=== PATIENT | female | born 1990 | race Caucasian/White ===

== ENCOUNTER 2018-08-04 15:54 | Emergency (ER) | payer BC ==
[~2018-08-04] VITALS: Ht 162.6 cm; Wt 86.6 kg
[2018-08-04] MEDS ORDERED: SYNTHROID25 MCG PO (16:23)
[2018-08-04] MEDS ORDERED: MULTI VITAMIN1 EACH PO (16:24)
== END 2018-08-04 18:30 | disposition home or self-care (01) ==
LOC: ED 15:54
DX: O20.0 Threatened abortion (principal); Z88.0 Allergy status to penicillin; Z88.2 Allergy status to sulfonamides; Z79.899 Other long term (current) drug therapy; Z3A.01 Less than 8 weeks gestation of pregnancy
CPT/HCPCS: 76801; 76817; 84702; 85025; 99284

== ENCOUNTER 2018-12-01 03:45 | Emergency (ER) | payer BC ==
[~2018-12-01] VITALS: Ht 162.6 cm; Wt 86.2 kg
[~2018-12-01 03:45] MED LIST: MOTRIN IB200 MG PO; MULTI VITAMIN1 EACH PO; NORCO 5-325 TA1 EACH PO; ONDANSETRON ODT8 MG PO; SYNTHROID25 MCG PO; SYNTHROID50 MCG PO; UNISOM25 MG PO; ZOFRAN ODT4 MG PO
[2018-12-01] MEDS ORDERED: CYCLOBENZAPRINE10 MG PO (03:59)
[2018-12-01] MEDS ORDERED: ULTRAM50 MG PO (08:43)
== END 2018-12-01 09:00 | disposition home or self-care (01) ==
LOC: ED 03:45
PROC: 0T9B70Z Drainage of Bladder with Drainage Device, Via Natural or Artificial Opening (ICD-10-PCS; principal; 2018-12-01)
DX: R10.2 Pelvic and perineal pain (principal); E03.9 Hypothyroidism, unspecified; Z88.5 Allergy status to narcotic agent; Z88.0 Allergy status to penicillin; Z88.2 Allergy status to sulfonamides; Z79.899 Other long term (current) drug therapy
CPT/HCPCS: 51701; 76830; 76856; 80053; 81001; 84702; 84703; 85025; 96374; 96375; 96376; 99284-25; J1885; J2405; J3010

== ENCOUNTER 2019-01-14 08:29 | Day surgery (SDC) | payer BC ==
[~2019-01-14] VITALS: Ht 162.6 cm; Wt 85.7 kg
--- NOTE | ~2019-01-14 | OR ---
[facility] [address] [place], [place] [address] Draft DATE OF OPERATION: 01/14/2019 SURGEON: Walter Spaulding DO PREOPERATIVE DIAGNOSES: 1. Uterine mass. 2. Abnormal uterine bleeding. 3. Possible retained products of conception. POSTOPERATIVE DIAGNOSES: 1. Uterine mass. 2. Abnormal uterine bleeding. PROCEDURES PERFORMED: 1. Hysteroscopy. 2. Dilation and curettage. 3. Excision of uterine mass. ANESTHESIA: MAC. ESTIMATED BLOOD LOSS: 10 mL. SPECIMENS: 1. Intrauterine mass. 2. Endometrial curettings. FINDINGS: Normal external genitalia, vagina, and cervix. Endocervical os/canal is normal. Normal tubal ostia bilaterally and a large posterior intrauterine cavitary mass extending on the patient's right side near the cornua. Some scant thready adhesions to this mass. Mass was avascular and rubbery in texture. This was excised completely with MyoSure REACH with scant bleeding. There were scant endometrial curettings returned with sharp curettage. The patient was hemostatic at the end of procedure. COMPLICATIONS: None. INDICATIONS: PATIENT NAME: TRELL GARG OPERATIVE REPORT DATE OF : 86 REPORT #: [id number] PHYSICIAN: WALTER SPAULDING DO PCP: ERON CAPPS PAC REPORT IS CONFIDENTIAL AND NOT TO BE RELEASED WITHOUT AUTHORIZATION [facility] [address] [place] [id number] Draft Ms. Garg is a pleasant 28-year-old white female who had miscarriage last fall. Suction D and C were performed and pathology was benign. She continued to bleed after her suction D and C and test continued to be positive. Ultrasound showed vascular posterior uterine mass concerning for possible AV malformation or retained products of conception. She was sent to [facility] for consult with [employer]/Onc who recommended watchful waiting. The patient had a second opinion with Сергей Graves MD at [facility] in [place], who is also HORSE EXERCISER oncologist. He recommended following levels closely and if plateau was reached to proceed with hysteroscopy D and C. Her levels did indeed plateau and decision was made to proceed with hysteroscopy D and C. Risks, benefits, and alternatives were discussed in detail with the patient and she wishes to proceed with the procedure. TECHNIQUE: The patient was taken to the operating room where a time-out was performed to confirm correct patient, correct procedure. MAC anesthesia was adequately established. She was prepped and draped in dorsal lithotomy position with feet in Yellofin stirrups. ICPs were on and running. She received doxycycline 200 mg p.o. 1 hour preoperatively per ACOG guidelines. Heparin was not indicated. She also received tranexamic acid 1 g IV preoperatively. Once the patient was prepped and draped, a weighted speculum was placed in vagina and the anterior lip of the cervix was grasped with a single-tooth tenaculum. The cervix was already widely dilated and an operative hysteroscope was placed in the cervical os and advanced under direct visualization through the cervical canal into the intrauterine cavity. Normal bilateral tubal ostia confirmed intrauterine position. There was a large mass on the posterior right wall of the uterine cavity. MyoSure REACH device was selected and the mass was excised without difficulty. It was rubbery in texture and no bleeding was noted with the excision of this. It was shaved, flushed to the wall of the uterine cavity and does not appear to extend into the wall. The operative hysteroscope was withdrawn and gentle circumferential curettage was performed with a sharp curette and curettings were collected on Telfa and sent to pathology. No additional bleeding was noted. Allis clamp was removed and the patient was taken to PACU in good and stable condition. Sponge and instrument count were correct x2 at the end of the procedure. Fluid deficit was 520 mL. Walter Spaulding DO JDW/MODL PATIENT NAME: TRELL GARG OPERATIVE REPORT DATE OF : 86 REPORT #: [id number] PHYSICIAN: WALTER SPAULDING DO PCP: ERON CAPPS PAC REPORT IS CONFIDENTIAL AND NOT TO BE RELEASED WITHOUT AUTHORIZATION [address] [place], [place] [address] Draft /[id number] Copies: ~ PATIENT NAME: TRELL GARG OPERATIVE REPORT DATE OF : 86 REPORT #: [id number] PHYSICIAN: WALTER SPAULDING DO PCP: ERON CAPPS PAC REPORT IS CONFIDENTIAL AND NOT TO BE RELEASED WITHOUT AUTHORIZATION
[~2019-01-14 08:29] MED LIST changes: +CYCLOBENZAPRINE10 MG PO; +ULTRAM50 MG PO
--- NOTE | 2019-01-14 13:01 | NUR ---
01/14/19 1301 Kimmie Chaparro 1242- PT ARRIVES TO PACU AWAKE AND MOANING IN PAIN. PT RATES HER PAIN AN 8/10 IN HER ABD. STATES SHE IS CRAMPING. KENIA ROMAN, CUSTOM STUDIO COORDINATOR AT THE BEDSIDE AND GIVES FENTANYL IV. SEE BLUE SHEET. RESP EVEN. OXYGEN SAT HIGH 90'S ON RA. 1250- PT REPORTS HER PAIN IS IMPROVING. RATES IT A 5/10, DENIES WANTING PAIN MEDICATION AT THIS TIME. 1252- PT STATES SHE FEELS LIKE SOMETHING IS "COMING OUT OF ME". PT CHECKED, NO BLOOD OR OBJECTS NOTED. EDUCATED PT THAT EVERYTHING LOOKS OKAY AT THIS TIME AND TO NOTIFY THIS RN IF ANYTHING FEELS DIFFERENT. 1257- PT IS REQUESTING MORE PAIN MEDICATION. SEE BLUE SHEET.
--- NOTE | 2019-01-14 13:02 | NUR ---
PT ALERT, ORIENTED AND SUPPORTED BY [facility]. PT KNOWS SHE IS AN ADD ON TO SURGERY SCHEDULE, AND IS VERY PT. 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 EXTENDED A BLESSING, WILL CONTINUE TO FOLLOW NEEDED
[2019-01-14] MEDS ORDERED: MOTRIN IB200 MG PO (13:31)
[2019-01-14] MEDS ORDERED: ULTRAM50 MG PO (13:31)
== END 2019-01-14 14:15 | disposition home or self-care (01) ==
LOC: OPS 08:29 → DS 08:29 → OPS 12:00 → DS 12:00 → OPS 14:15
PROVIDERS: Obstetrics & Gynecology
PROC: 0UDB8ZZ Extraction of Endometrium, Via Natural or Artificial Opening Endoscopic (ICD-10-PCS; principal; 2019-01-14 12:00)
DX: N85.8 Other specified noninflammatory disorders of uterus (principal); Z98.890 Other specified postprocedural states; Z88.0 Allergy status to penicillin; Z88.2 Allergy status to sulfonamides; Z79.899 Other long term (current) drug therapy
CPT/HCPCS: 00952; 85027; 86850; 86900; 86901; J0131; J1100; J1885; J2250; J2405; J2704; J3010; J7120

== ENCOUNTER 2020-01-06 00:03 | Inpatient (IN) | payer BC ==
[~2020-01-06] VITALS: Ht 162.6 cm; Wt 105.0 kg
[2020-01-06] MEDS ORDERED: VITAFOL-OB+DHA1 EACH PO (00:50)
[2020-01-06] MEDS ORDERED: PEPCID20 MG PO (00:50)
[2020-01-06] MEDS ORDERED: MAGNESIUM500 MG PO (00:51)
[2020-01-06] MEDS ORDERED: OMEGA 3 1,0001 EACH PO (00:51)
[2020-01-06] MEDS ORDERED: SYNTHROID50 MCG PO (00:52)
--- NOTE | 2020-01-06 08:05 | PR ---
[facility] [address] [place] [place] [address] Signed Progress Notes IP Datetime Report Generated by CPN: 01/06/2020 08:05 PROGRESS NOTES: [id number] Impression: Normal progression of labor; Reassuring heart rate Procedures: Sterile Vag Exam Plan: Continue present management; Anticipate Vaginal Delivery VITAL SIGNS: [id number] Vital Signs: Reviewed VS Notable Details: Elevated BPs prior to epidural, now normal EXAM: [id number] Dilatation: 5.0 Effacement: 95 Station: -2 Uterine Contractions: Irregular MEMBRANES: [id number] Comments: Pt seen and examined. Doing well. Comfortable w/ epidural. FHT reassuring. Slightly elevated BPs secondary to pain prior to epidural now normal. No MORRISON, RUQ pain, or visual changes. Anticipate . Fetus A: [id number] FHR Baseline: 120 Variability: Moderate 6-25bpm Accelerations: 15X15 Decelerations: None FHR Category: Category I Presentation: Vertex Comments on Fetus A: No evidence of metabolic acidosis Fetus B: [id number] Signing Physician: Walter Spaulding DO Copies: ~ *Electronically Signed* 01/06/20 0805 WALTER SPAULDING DO PATIENT NAME: TRELL CAMERON PROGRESS NOTE DATE OF : 86 PHYSICIAN: WALTER SPAULDING DO RPT #: [id number] REPORT IS CONFIDENTIAL AND NOT TO BE RELEASED WITHOUT AUTHORIZATION
--- NOTE | 2020-01-06 09:54 | PR ---
[facility] [address] [facility] [place], [place] [address] Signed Progress Notes IP Datetime Report Generated by CPAnu: 01/06/2020 09:54 PROGRESS NOTES: [id number] Impression: Normal progression of labor Procedures: Sterile Vag Exam Plan: Continue present management; Anticipate Vaginal Delivery Informed Consent Obtain: Vaginal Delivery VITAL SIGNS: [id number] Vital Signs: Reviewed; Within Normal Limits VS Notable Details: Elevated BPs prior to epidural, now normal EXAM: [id number] Dilatation: 9.0 Effacement: 100 Station: -1 Uterine Contractions: Irregular MEMBRANES: [id number] Comments: Pt seen and examined. Doing well. Comfortable w/ contractions. Feeling some increased pressure. Will labor down. Anticipate soon. Fetus A: [id number] FHR Baseline: 125 Variability: Moderate 6-25bpm Accelerations: 15X15 Decelerations: Late FHR Category: Category II Presentation: Vertex Comments on Fetus A: No evidence of metabolic acidosis Fetus B: [id number] Signing Physician: Walter Spaulding DO Copies: ~ *Electronically Signed* 01/06/20 0954 WALTER SPAULDING DO PATIENT NAME: TRELL CAMERON PROGRESS NOTE DATE OF : 86 PHYSICIAN: WALTER SPAULDING DO RPT #: [id number] REPORT IS CONFIDENTIAL AND NOT TO BE RELEASED WITHOUT AUTHORIZATION
--- NOTE | 2020-01-06 11:10 | PR ---
[facility] [address] [facility] [place], [place] [address] Signed Progress Notes IP Datetime Report Generated by CPN: 01/06/2020 11:10 PROGRESS NOTES: [id number] Impression: Normal progression of labor; Reassuring heart rate Procedures: Sterile Vag Exam Plan: Anticipate Vaginal Delivery Informed Consent Obtain: Vaginal Delivery VITAL SIGNS: [id number] Vital Signs: Reviewed VS Notable Details: Elevated BPs prior to epidural, now normal EXAM: [id number] Dilatation: 10.0 Effacement: 100 Station: 0 Uterine Contractions: Irregular MEMBRANES: [id number] Comments: Pt complete and RN pushing w/ pt at perineum. Reviewed FHT. Discussed anticipated course of delivery w/ pt . All questions answered. Reviewed recent US and EFW. Fetus A: [id number] FHR Baseline: 130 Variability: Moderate 6-25bpm Accelerations: 15X15 Decelerations: None FHR Category: Category I Presentation: Vertex Comments on Fetus A: No evidence of metabolic acidosis Fetus B: [id number] Signing Physician: Walter Spaulding DO Copies: ~ *Electronically Signed* 01/06/20 1110 WALTER SPAULDING DO PATIENT NAME: CASANDRA SKUFCA,TRELL ANTHONY PROGRESS NOTE DATE OF : 86 PHYSICIAN: WALTER SPAULDING DO RPT #: [id number] REPORT IS CONFIDENTIAL AND NOT TO BE RELEASED WITHOUT AUTHORIZATION
--- NOTE | 2020-01-06 13:50 | NUR ---
CHECKED ON PT AND -PT HAS GONE INTO LABOR. WILL CHECK BACK AGAIN
--- NOTE | 2020-01-07 08:30 | PR ---
[facility] [address] [facility] [place], [place] [address] Signed PP Progress Notes Datetime Report Generated by CPN: 01/07/2020 08:30 SUBJECTIVE: [id number] Pain: Within normal limits Nausea/Vomiting: Denies Flatus: Yes Bowel Movement: No Vital Signs: [id number] Vital Signs: Reviewed; Within Normal Limits EXAM: [id number] Cardiovascular: Normal Respiratory: Normal Abdomen/Uterus: Normal Lochia: Normal Vulva/Perineum: Not Done Breasts: Not Done CVA Tenderness: Normal Extremities: Normal Incision: Not Applicable Progress: Normal Exam Comments: Fundus firm U-2 nontender IMPRESSION/PLAN/PROCEDURES: [id number] Impression: Normal progression Plan: Discharge Progress Notes: Pt seen and examined. Doing well. Ambulating, voiding, and tolerating full diet. Pain and lochia minimal. well. Hgb 9.0 - no lightheadedness or dizziness. Desires d/c home. D/C instructions reviewed. F/U 2 wks Signing Physician: Walter Spaulding DO Copies: ~ *Electronically Signed* 01/07/20 0830 WALTER SPAULDING DO PATIENT NAME: CASANDRA SKUFCA,TRELL ANTHONY PROGRESS NOTE DATE OF : 86 PHYSICIAN: WALTER SPAULDING DO RPT #: [id number] REPORT IS CONFIDENTIAL AND NOT TO BE RELEASED WITHOUT AUTHORIZATION
--- NOTE | 2020-01-07 11:52 | NUR ---
EVERYONE DOING GREAT-DC LATER TODAY. BABY IS BEAUTIFUL GAVE BLESSING. WILL FOLLOW NEEDED
== END 2020-01-07 13:49 | disposition home or self-care (01) | DRG 806 ==
LOC: FBC 00:03
PROVIDERS: ADMIT Obstetrics & Gynecology
PROC: 10E0XZZ Delivery of Products of Conception, External Approach (ICD-10-PCS; principal; 2020-01-06)
PROC: 0HQ9XZZ Repair Perineum Skin, External Approach (ICD-10-PCS; 2020-01-06)
PROC: 3E0P7VZ Introduction of Hormone into Female Reproductive, Via Natural or Artificial Opening (ICD-10-PCS; 2020-01-06)
PROC: 00HU33Z Insertion of Infusion Device into Spinal Canal, Percutaneous Approach (ICD-10-PCS; 2020-01-06)
PROC: 3E0R3BZ Introduction of Anesthetic Agent into Spinal Canal, Percutaneous Approach (ICD-10-PCS; 2020-01-06)
DX: O70.0 First degree perineal laceration during delivery (principal); D62 Acute posthemorrhagic anemia; Z37.0 Single live birth; O99.214 Obesity complicating childbirth; E66.9 Obesity, unspecified; O76 Abnormality in fetal heart rate and rhythm complicating labor and delivery; O90.81 Anemia of the puerperium; Z3A.39 39 weeks gestation of pregnancy; Z79.899 Other long term (current) drug therapy; Z88.0 Allergy status to penicillin; Z88.2 Allergy status to sulfonamides
CPT/HCPCS: 01960; 36415; 85027; A9270; J2590; J2795; J3010; J7121

== ENCOUNTER 2020-11-06 13:24 | Inpatient (IN) | payer BC ==
[~2020-11-06] VITALS: Ht 162.6 cm; Wt 91.0 kg
[~2020-11-06 13:24] MED LIST changes: +MAGNESIUM500 MG PO; +OMEGA 3 1,0001 EACH PO; +PEPCID20 MG PO; +VITAFOL-OB+DHA1 EACH PO
[2020-11-06] MEDS ORDERED: SERTRALINE HCL50 MG PO (13:55)
[2020-11-06] MEDS ORDERED: CEPHALEXIN500 MG PO (13:55)
--- NOTE | 2020-11-06 18:36 | NUR ---
New admit to the floor. Patient arrived alert and oriented x4. VSS at this time. Patient oriented to room and call light. Dinner to patient. Patient would like to eat dinner and express breast milk at this time. Fluids started. Call light within reach.
--- NOTE | 2020-11-06 19:10 | NUR ---
PT AWAKE IN ROOM, USING BREAST PUMP. PAIN 4/10 IN LEFT BREAST. DENIES NEED FOR INTERVENTION. ICE WATER AND WARM PACK PROVIDED. NO OTHER NEEDS. CALL LIGHT IN REACH.
--- NOTE | 2020-11-06 19:45 | NUR ---
CHARGE ROUNDING COMPLETED. NO REQUESTS AT THIS TIME. BREAST MILK SAMPLE GIVEN TO PRIMARY RN. CALL LIGHT WITHIN REACH.
--- NOTE | 2020-11-06 21:00 | NUR ---
ASSESSMENT, VS AND I&O COMPLETED. GCS 15, A&O X4. HEART TONES REGULAR, LUNGS CLEAR. ABD SOFT, PT STATES NORMAL, BOWEL TONBES ACTIVE. CMS INTACT. LEFT BREAST HAS SWOLLEN, FIRM AND RED AREAS. PT STATES SHE HAS NOT HAD ANY DISCHARGE FROM THE [place] RECENTLY. PAIN 3/10, DENIES NEED FOR INTERVENTION AT THIS TIME. NO OTHER NEEDS AT THIS TIME. CALL LIGHT IN REACH.
--- NOTE | 2020-11-06 22:59 | NUR ---
PT RESTING IN BED, EYES CLOSED. RR EVEN, UNLABORED. IV FLUIDS INFUSING PER ORDER. CALL LIGHT IN REACH.
--- NOTE | 2020-11-06 23:49 | NUR ---
PT REPORTS 6/10 LEFT BREAST PAIN, BURNING. PRN PAIN MEDICATIONS PROVIDED. NO OTHER NEEDS AT THIS TIME. CALL LIGHT IN REACH.
--- NOTE | 2020-11-07 01:33 | NUR ---
PT IV PUMP ALARMING, RESOLVED. PT PAIN 01/03, DENIES NEED FOR INTERVENTION. VS AND I&O COMPLETED. NO OTHER NEEDS AT THIS TIME. CALL LIGHT IN REACH.
--- NOTE | 2020-11-07 03:52 | NUR ---
PT RESTING IN BED, EYES CLOSED. RR EVEN, UNLABORED. CALL LIGHT IN REACH.
--- NOTE | 2020-11-07 06:27 | NUR ---
ASSESSMENT, VS AND I&O COMPLETED. LEFT BREAST PAIN 05/03, PRN PAIN MED PROVIDED. SCHEDULED MED PROVIDED. LEFT BREAST UNCHANGED, NO NEW DRAINAGE. CMS INTACT. WARM PACK AND COFFEE PROVIDED. IV WNL. NO OTHER NEEDS AT THIS TIME. CALL LIGHT IN REACH.
--- NOTE | 2020-11-07 07:05 | NUR ---
To room for shift report from Dara LEE. Pt report included: Pts VSS throughout the shift. Pts left breast caused enough pain to need PRN meds last night, last dose given at 0600. Pt had an otherwise uneventful evening. Pt is currently sitting up in chair, alert and pleasant upon greeting, table and call light within reach.
--- NOTE | 2020-11-07 07:20 | NUR ---
PATIENT SITTING UP IN CHAIR. WHITE BOARD UPDATED. CALL LIGHT WITHIN REACH. NO OTHER NEEDS AT THIS TIME
--- NOTE | 2020-11-07 08:46 | NUR ---
MORNING MEETING WITH DISCUSSED WITH SHRUTHI FROM PHARMACY ABOUT PATIENT MEDICATIONS AND BREAST MILK RISKS, SHRUTHI CONSULTED WITH PT THIS AM. ALSO DISCUSSED PT INTEREST IN POSSIBLE OUTPT ABX THERAPY.
--- NOTE | 2020-11-07 08:46 | NUR ---
MED REC COMPLETE
--- NOTE | 2020-11-07 09:15 | NUR ---
PATIENT SITTING UP IN CHAIR. VITAL SIGNS AND I&O DONE. PATIENT USES THE BATHROOM. PATIENT BACKS TO CHAIR. SETS UP BATHROOM FOR SHOWER. HEAT PACK PROVIDED. CALL LIGHT WITHIN REACH. NO OTHER NEEDS AT THIS TIME
--- NOTE | 2020-11-07 09:38 | NUR ---
In room for assessment and med pass. Pt able to take all meds without difficulty. Pt reports 6/10 pain and given PRN toradol. Pt denies nausea. Pt un to chair, idependent in the room. Pt assessment complete, see charting. Pt in chair, table and call light within reach.
--- NOTE | 2020-11-07 10:15 | NUR ---
Spoke with Marie. She plans on dc to home tomorrow with spouse. She will return for OP antibiotics as ordered. Denies needs to go home. Spouse will take time off and assist her with kids and as needed. She will dc after [facility] tomorrow.
--- NOTE | 2020-11-07 11:20 | NUR ---
In room for rounding. Pt reports 6/10 pain, given PRN pain med as ordered. Pt denies nausea. Pt in chair, table and call light within reach.
--- NOTE | 2020-11-07 11:32 | NUR ---
In room to disconnect IV, as ABX infusion complete. Pt disconnected and IV flushed with 10mls NS, site CDI, no s/sx infiltration. Pt IV site wrapped and pt up to shower. Pt denies further needs at this time. Pt in bathroom, call light within reach.
--- NOTE | 2020-11-07 12:30 | NUR ---
In room for rounding. Pts towels on bathroom floor cleaned up. Pt finished with lunch and tray removed from room. Pt reports 2/10 tolerable pain. Pt wants to nap at this time. Pt getting into bed, table and call light within reach.
--- NOTE | 2020-11-07 13:17 | NUR ---
PT ALERT, ORIENTED AND PT ADMITTED TO ROSA CRONIN THAT PAIN IS AT 6, PAIN MEDS GIVEN WHILE I WAS IN RM BY ROSA CRONIN. PT SOMEWHAT ANXIOUS, THANKFUL THAT HER WAS SO CARING-WITH THEIR CHILDREN AND HER. PT FEELS INFORMED, SOMEWHAT SURPRISED AT HOW FAST INFECTION CAME ON. GAVE ENCOURAGEMENT, DAKSHA MARTINEZ AND HAD PRAYER WITH PT. WILL FOLLOW NEEDED
--- NOTE | 2020-11-07 13:23 | NUR ---
In room for rounding. Pt lying in bed, TIME STUDY CLERK at bedside. Pt reports 2/10 pain and no nausea at this time. Pt in bed, table and call light within reach.
--- NOTE | 2020-11-07 13:25 | NUR ---
PATIENT RESTING IN BED. VITAL SIGNS AND I&O DONE. CALL LIGHT WITHIN REACH. NO OTHER NEEDS AT THIS TIME
--- NOTE | 2020-11-07 14:45 | NUR ---
In room for rounding. Pt reports 6/10 intolerable pain and nausea. Pt given PRN antiemetic and PRN pain med. Pt lying in bed, table and call light within reach. Pt given warm blankets and denies further needs at this time.
--- NOTE | 2020-11-07 15:30 | NUR ---
IN room for afternoon assessment. Pt assessment complete, see charting. Pt reports "feeling crummy". Pt denies further needs at this time. Pt in bed, table and call light within reach.
--- NOTE | 2020-11-07 17:16 | NUR ---
In room for rounding. Pt is up ambulating in hallways.
--- NOTE | 2020-11-07 17:28 | NUR ---
PATIENT SITTING UP IN CHAIR. VITAL SIGNS AND I&O DONE. CALL LIGHT WITHIN REACH. NO OTHER NEEDS AT THIS TIME
--- NOTE | 2020-11-07 18:47 | NUR ---
In room for med pass, pt reports 7/10 pain in her L breast. Pt IV infiltrated, Nisha attempted once. Juani Ramos called to bedside. Pt tolerating well. Pt in bed, table and call light within reach.
--- NOTE | 2020-11-07 19:10 | NUR ---
PT LEFT BREAST PAIN 06/02, PRN PAIN MED PROVIDED BY SHADY LEE. SHIFT REPORT RECEIVED FROM ROSEANNE LEE AND JESSICA LEE. NO OTHER NEEDS AT THIS TIME. CALL LIGHT IN REACH.
--- NOTE | 2020-11-07 19:50 | NUR ---
left breast pain 7/, prn pain med provided. no other needs. call light in reach.
--- NOTE | 2020-11-07 21:10 | NUR ---
PT RESTING IN BED, WATCHING TV. LEFT BREAST PAIN /, DENIES NEED FOR FURTHER PAIN INTERVENTION. GCS 15, A&O X 4. LUNGS CLEAR, HEART TONES REGULAR. ABD SOFT, NONTENDER, BOWEL TONES ACTIVE, PT STATES NORMAL. CMS INTACT. LEFT BREAST SWELLING APPEARS LESS THAN YESTERDAY AND SOFTER TO PALPATION. REDNESS HAS ADVANCED ABOUT 1 INCH ON LEFT SIDE OF BREAST TOWARDS THE AXILLARY. PT STATES SHE HAS SOME BRIGHT YELLOW WITH BLOOD TINGED DISCHARGE TODAY. NO OTHER NEEDS AT THIS TIME. CALL LIGHT IN REACH.
--- NOTE | 2020-11-08 | NUR ---
PT RESTING IN BED, EYES CLOSED. RR EVEN, UNLABORED. CALL LIGHT IN REACH.
--- NOTE | 2020-11-08 01:52 | NUR ---
PT CALLED REQUESTING WARM BLANKET, DENIES FURTHER NEEDS, & CALL LIGHT IS CLOSE.
--- NOTE | 2020-11-08 02:00 | NUR ---
PT RESTING IN BED, EYES CLOSED. RR EVEN, UNLABORED. CALL LIGHT IN REACH.
--- NOTE | 2020-11-08 04:00 | NUR ---
PT RESTING IN BED, EYES CLOSED. RR EVEN, UNLABORED. CALL LIGHT IN REACH.
--- NOTE | 2020-11-08 06:32 | NUR ---
SCHEDULED MEDS ADMINISTERED PER EMAR. PRN ADMINISTERED FOR 7/10 LEFT BREAST PAIN. PT REPORTS REPORTS REDNESS IMPROVED AND IS NOW MORE "PINK". UP TO BR TO PUMP AT THIS TIME.
--- NOTE | 2020-11-08 06:47 | NUR ---
PT SLEPT WELL LAST NIGHT. PAIN MANGED WITH PRN PAIN MEDS. LEFT BREAST AREA PAINFUL, RED AND EXPRESSES BRIGHT YELLOW DISCHARGE WHEN PT EXPRESSES MILK. VSS, UOS. PT TOLERATED DIET WELL.
--- NOTE | 2020-11-08 07:10 | NUR ---
Shift report from Dara LEE included: Pts pain is being controlled by her PRN oxycodone and toradol. Pt due to have vanco troph this morning, DC to be determined after. Pt up to chair at this time, denies needs. Reports 4/10 decreasing pain and no nausea. Table and call light within reach.
--- NOTE | 2020-11-08 07:30 | NUR ---
patient up ambulating halls. linens changed, ice water provided
--- NOTE | 2020-11-08 09:18 | NUR ---
PATIENT AWAKE IN CHAIR, VITALS AND I&OS CHARTED. CONY LIGHT IN REACH, NO OTHER NEEDS AT THIS TIME
--- NOTE | 2020-11-08 10:00 | NUR ---
Spoke with pt and Dr. Ramos. Plan for pt to dc today, pending culture and she will follow up with op visit with pcp, she will go to OP therpay for IV vanco. She denies needs. Plans on dc home with family today. Spouse is off work and will assist her.
--- NOTE | 2020-11-08 10:13 | NUR ---
Pts IV ABX started as order, dose of vanco adjusted post vanco troph. Pt denies need at this time. Pt in chair, table and call light within reach.
[2020-11-08] MEDS ORDERED: VANCO 2 GR2 GM/500 M IV (11:12)
--- NOTE | 2020-11-08 12:00 | NUR ---
In room for rounding. Pt denies needs at this time. Pt in chair, having lunch, table and call light within reach.
--- NOTE | 2020-11-08 12:02 | NUR ---
Orders for OP therapy were sent by ARISTEO Booth.
--- NOTE | 2020-11-08 14:13 | NUR ---
PT UP WALKING IN HALLS-READY FOR DC. PT SLEPT BETTER, ANXIOUS TO DC TO SEE AND CARE FOR FAMILY. PT FEELS THIS IS PARTLY THE RESULT OF TOO MUCH STRSSS AND NEEDS TO FIND POSITIVE WAYS TO RELIEVE STRESS IN HER BODY. VISITED ABOUT WAYS TO DEAL WITH THIS SITUAATION. GAVE BLESSING AND WILL FOLLOW
== END 2020-11-08 13:25 | disposition home or self-care (01) | DRG 601 ==
LOC: ED 13:24 → MS 17:23
PROVIDERS: ADMIT Student in an Organized Health Care Education/Training Program; ATTEND Student in an Organized Health Care Education/Training Program
DX: N60.12 Diffuse cystic mastopathy of left breast (principal); Z20.828 Contact with and (suspected) exposure to other viral communicable diseases; F53.0 Postpartum depression; E02 Subclinical iodine-deficiency hypothyroidism; Z79.899 Other long term (current) drug therapy; Z88.2 Allergy status to sulfonamides; Z88.0 Allergy status to penicillin; Z88.5 Allergy status to narcotic agent
CPT/HCPCS: 36415; 76642; 80048; 80053; 80202; 83735; 85025; 96365; 96375; 99284-25; J1170; J1885; J2405; J2700; J3370; J7030; J7060; J7121; U0003

== ENCOUNTER 2021-03-26 00:50 | Emergency (ER) | payer BC ==
[~2021-03-26] VITALS: Ht 162.6 cm; Wt 90.7 kg
[~2021-03-26 00:50] MED LIST changes: +CEPHALEXIN500 MG PO; +SERTRALINE HCL50 MG PO; +VANCO 2 GR2 GM/500 M IV
== END 2021-03-26 02:17 | disposition home or self-care (01) ==
LOC: ED 00:50
DX: R10.11 Right upper quadrant pain (principal); E03.9 Hypothyroidism, unspecified; Z88.5 Allergy status to narcotic agent; Z88.0 Allergy status to penicillin; Z88.2 Allergy status to sulfonamides
CPT/HCPCS: 80053; 83690; 85025; 96374; 99284-25; J2405; J7030

== ENCOUNTER 2021-05-10 09:12 | Day surgery (SDC) | payer BC ==
[~2021-05-10] VITALS: Ht 162.6 cm; Wt 95.5 kg
--- NOTE | 2021-05-10 12:17 | NUR ---
05/10/21 Juan7 Kimmie Chaparro 1207- PT ARRIVES TO PACU RESPONSIVE TO VERBAL STIMULI. RESP EVEN AND UNLABORED. OXYGEN SAT MID TO HIGH 90'S ON 6L VIA MASK. PT IS MAKING NOISES WHEN SHE BREATHS AND STATES IT HURTS. LUNG FIELD AND UPPER AIRWAY ALL CLEAR. PT FALLS TO SLEEP AND THE NOISES STOP. RESP REMAIN EVEN AND UNLABORED. 1216- PT REPORTS SHE IS HAVING RIGHT UPPER QUAD ABD PAIN THAT SHE RATES AN 8/10. PT DENIES ANY PAIN WITH BREATHING ANYMORE.
[2021-05-10] MEDS ORDERED: OXYCODON-ACETA1 EAC2 PO ×2 (12:24→14:53)
[2021-05-10] MEDS ORDERED: ACETAMINOPHEN500 MG PO (12:24)
[2021-05-10] MEDS ORDERED: IBUPROFEN600 MG PO (12:24)
--- NOTE | 2021-05-10 13:13 | NUR ---
1305: PATIENT BACK IN DAY SURGERY ROOM FROM PACU. DROWSY, BUT AWAKENS TO VOICE. RATES PAIN 5/10. DENIES NEED FOR ADDITIONAL PAIN MEDS AT THIS TIME. VS CHECKED. IV SITE WNL. ABDOMINAL INCISIONS WITH STERI STRIPS WITH SMALL AMOUNT OF RED DRAINAGE. SCDs ON. ICE WATER PLACED AT BEDSIDE. CALL LIGHT WITHIN REACH.
--- NOTE | 2021-05-10 14:29 | NUR ---
1420-PATIENT REPORTING PAIN 7/10 CONSTANT, ALSO REPORTS NAUSEA. NEW ORDER RECEIVED FROM DR HILL FOR ZOFRAN IV Q6. PATIENT REQUESTING ICE PACK. NEW ORDER RECEIVED FOR ICE PACK. PATIENT GIVEN XAVIER CRACKER AND WILL REASSES WITH PATIENT ABOUT TAKING PAIN PILL. CALL LIGHT WITHIN REACH AND LIGHTS DIMMED.
--- NOTE | 2021-05-10 14:38 | NUR ---
PT ALERT, ORIENTED AND QUIETLY WAITING. PTS' [facility] WILL RETURN FOR DC, HOME WITH CHILDREN. ALL QUESTIONS ASKED ANSWERED. PT REQUESTED PRAYER. GAVE COMFORT AND ENCOURAGEMENT. WILL FOLLOW NEEDED
--- NOTE | 2021-05-10 14:47 | NUR ---
PATIENT MEDICATED FOR 7/10 PAIN WITH 1 TABLET OF PERCOCET. REQUESTED VANILLA PUDDING. PATIENT GIVEN VANILLA PUDDING. SCDs ON. CALL LIGHT WITHIN REACH.
--- NOTE | 2021-05-10 15:23 | NUR ---
PATIENT STATES PAIN STARTING TO IMPROVE AFTER PAIN CONTRACT COORDINATOR. VS CHECKED. ABDOMINAL INCISIONS WNL. STERI STRIPS INTACT. SCDs ON. PATIENT TOLERATED XAVIER CRACKER AND PUDDING. CALL LIGHT WITHIN REACH.
--- NOTE | 2021-05-10 16:04 | NUR ---
PATIENT ASSISTED OOB AND TO BATHROOM. GAIT STEADY TO AND FROM BATHROOM. UPPER MID ABDOMINAL SITE OOZING. REINFORCED WITH GUAZE AND MEDIPORE TAPE. MOST RIGHT SIDED ABDOMINAL SITE LEAKING PINK TINGED FLUID. THIS SITE ALSO REINFORCE WITH GUAZE AND MEDIPORE TAPE. PATIENT GETTING DRESSED INDEPENDENTLY.
--- NOTE | 2021-05-10 16:13 | NUR ---
DISCHARGE INSTRUCTIONS GIVEN TO PATIENT. IV DC'D WNL. TIP INTACT. DRESSING APPLIED.
--- NOTE | 2021-05-11 15:12 | PATH ---
[facility] [address] [place], [place] [address] Signed SPECIMEN(S): A GALLBLADDER SPECIMEN SOURCE: A. GALLBLADDER CLINICAL HISTORY: Laparoscopic cholecystectomy. Chronic cholecystitis. FINAL PATHOLOGIC DIAGNOSIS: Gallbladder, cholecystectomy: - Chronic cholecystitis with cholesterolosis. NAL:cml:C2NR MICROSCOPIC EXAMINATION: Histologic sections of all submitted blocks are examined by light microscopy. These findings, together with the gross examination, support the pathologic diagnosis. GROSS DESCRIPTION: The specimen, labeled "Aden GALVIN.," is received in formalin and consists of Specimen: Previously opened gallbladder. Dimensions: 6.9 x 4.0 x 0.7 cm. Serosa: Green-bradley and smooth. Cystic Duct: Unobstructed. Calculi: Not grossly identified. Mucosa: Brown-bradley and velvety. Wall thickness: 0.5 cm. Lymph node: No pericystic lymph nodes are grossly identified. Additional: None. Surveying Teacher sections are submitted in cassette (A1). AC (under the direct supervision of a pathologist) The Gross Description was prepared using a voice recognition system. The report was reviewed for accuracy; however, sound-alike word errors, addition and/or deletions may occur. If there is any question about this report, please contact Client Services. PERFORMING LABORATORY: The technical component was performed by [facility], [address] [place] [id number] (Student Ministries Director: Montserrat Boyd MD; CLIA# [id number]). [facility], [address] [facility]. 107, PATIENT NAME: TRELL CAMERON PATHOLOGY DATE OF : 86 REPORT #: [id number] PHYSICIAN: ASAF PATHOLOGY PCP: NO PRIMARY CARE PHYSICIAN REPORT IS CONFIDENTIAL AND NOT TO BE RELEASED WITHOUT AUTHORIZATION [facility] [address] [facility] [place] [address] Signed Evelia Molina [id number] (CLIA# [id number]). Diagnostician: Lisa Haddad MD Pathologist Electronically Signed 05/11/2021 Copies: ~ PATIENT NAME: TRELL CAMERON PATHOLOGY DATE OF : 86 REPORT #: [id number] PHYSICIAN: ASAF PATHOLOGY PCP: NO PRIMARY CARE PHYSICIAN REPORT IS CONFIDENTIAL AND NOT TO BE RELEASED WITHOUT AUTHORIZATION
--- NOTE | 2021-05-12 12:37 | OR ---
[facility] [address] [place], [place] [address] Signed DATE OF OPERATION: 05/10/2021 SURGEON: Aiden Hill MD PREOPERATIVE DIAGNOSES: 1. Chronic acalculous cholecystitis. 2. Intrauterine gestation, 16 weeks. 3. Obesity. POSTOPERATIVE DIAGNOSES: 1. Chronic acalculous cholecystitis. 2. Intrauterine gestation, 16 weeks. 3. Obesity. PROCEDURES: 1. Laparoscopic cholecystectomy with intraoperative cholangiogram. 2. Surgeon-directed fluoroscopy. ANESTHESIA: General endotracheal; Apollo Dao, PROTECTION OFFICER and local 20 mL of 0.25% Marcaine with epinephrine. INDICATION: This 31-year-old white woman is a patient of Fadia Wyatt as well as Dr. Walter Spaulding (instrument tester). The patient has had symptoms highly suggestive of biliary colic including right subcostal pain radiating to the right lateral chest wall and subscapular area. This occurs after eating and is reliable in its onset. Avoidance of fatty food has been somewhat helpful to her. She was empirically treated with Pepcid with no beneficial effect. She has no reflux-type symptoms or substernal burning pain. She underwent ultrasound under the direction of her reactor technician, Dr. Spaulding, which showed no evidence of wall thickening or stones. She has no family history of biliary disease. She had similar such symptoms during her 1st , but not during her 2nd . She has undergone appendectomy in 2013. She is admitted at this time to undergo cholecystectomy for presumed acalculous cholecystitis. Consideration has been made for CCK-HIDA test. However, the concerns regarding radiation exposure related to nuclear medicine has been considered and on that basis was to be avoided. The patient and her understand the risks of bleeding, infection, bile duct injury, need for open procedure, and most importantly failure to cure her symptoms though I think likely they will be cured with cholecystectomy. Understand this, they Electronically Signed By: AIDEN HILL MD 05/12/21 1237 PATIENT NAME: TRELL CAMERON OPERATIVE REPORT DATE OF : 86 REPORT #: [id number] PHYSICIAN: AIDEN HILL MD PCP: NO PRIMARY CARE PHYSICIAN REPORT IS CONFIDENTIAL AND NOT TO BE RELEASED WITHOUT AUTHORIZATION [facility] [address] [place], [place] [address] Signed wished to proceed. FINDINGS: The patient is at this point, 16 weeks . Her fundic height was approximately 1 hand breath below the umbilicus typical of a 16-week gestation. Intraabdominal examination showed an intact uterus. There was no injury to the uterus. The gallbladder itself was chronically inflamed externally and had dense omental adhesions to it. The liver itself was normal. Cholangiogram was performed, which was normal. The gallbladder once opened showed no sign of stones, only mild chronic inflammation. DESCRIPTION OF PROCEDURE: The patient was brought to the operating room, given a general endotracheal anesthetic. Elevation of the right hip with a gel pad was undertaken. She received preoperative antibiotic clindamycin based on her allergy profile. Sequential compression device stockings were used and heparin subcutaneously administered. The abdomen was prepared with a chlorhexidine solution and draped sterilely. Abdominal palpation showed the fundic height to be approximately 4 fingerbreadths below the umbilicus as would be typical of a 16-week intrauterine gestation. Although there was an infraumbilical scar from past laparoscopy, a supraumbilical incision was made vertically oriented, avoiding her abdominal wall piercing sites. Using an open Roland cannula technique, the abdomen was entered and pneumoperitoneum achieved to a level of 10 mmHg with carbon dioxide gas. Intraabdominal inspection showed no sign of ascites or carcinomatosis. The liver appeared reasonably normal. The gallbladder showed chronic inflammatory change and a dull irby appearance. Examination of the uterus and bowel showed the uterus to be normal in appearance. Three additional trocars were placed in usual configuration in the subxiphoid, right midclavicular, and right anterior axillary line. The gallbladder was elevated cephalad. Dense omental adhesions to the undersurface of the gallbladder were noted and these were taken down with blunt electrocautery dissection. This allowed for further elevation of the gallbladder. The gallbladder once freed from omental adhesions was retracted laterally and using blunt electrocautery dissection, triangle of Calot was dissected free ultimately identifying well the cystic duct. A clip was applied across the gallbladder cystic duct junction. The cystic duct was notably rather small in size. Transverse choledochotomy made in the cystic duct allowed for egress of clear bile. Using an Luevano-type cholangiocatheter, intraoperative cholangiography was undertaken with surgeon-directed fluoroscopy. Only brief amount of fluoroscopy was used during the procedure. Free flow of contrast was noted in the biliary tree, prompt emptying into the duodenum was noted as well. There was no sign of filling defect or biliary anomaly. The catheter was removed and the cystic duct was triply clipped and divided. The gallbladder was then dissected free in a retrograde fashion using electrocautery. A small rent was made in the gallbladder in the superior aspect allowing for drainage of a Electronically Signed By: AIDEN HILL MD 05/12/21 1237 PATIENT NAME: TRELL CAMERON OPERATIVE REPORT DATE OF : 86 REPORT #: [id number] PHYSICIAN: AIDEN HILL MD PCP: NO PRIMARY CARE PHYSICIAN REPORT IS CONFIDENTIAL AND NOT TO BE RELEASED WITHOUT AUTHORIZATION [facility] [address] [place], [place] [address] Signed small amount of bile. This was controlled. The gallbladder once excised was placed in an endobag and extracted through the supraumbilical port site without problem, opened on the back table, found to have mild chronic inflammatory change of the mucosa, but no stones or neoplasm. Irrigation was undertaken in the subhepatic space. The area of omental takedown from the gallbladder showed a small amount of oozing and therefore clips were multiply applied to this area affecting hemostasis. Irrigation was undertaken more fully and excess irrigation fluid suctioned free. Tisseel with CO2 spray delivery device was used in the subhepatic space to be extra cautious to avoid any oozing of blood. Once hemostasis was considered complete, the trocars removed under direct visualization showing no sign of bleeding. The supraumbilical fascial incision was reapproximated with interrupted 0 Vicryl suture. 20 mL of 0.25% Marcaine with epinephrine was injected locally. The skin was closed with interrupted 3-0 Vicryl and Steri-Strips were applied. The patient was ultimately extubated and transferred to the recovery room in good condition having suffered no complication. Sponge, needle, and counts reported as correct x3. Total blood loss less than 20 mL at most. MD EH Jansen/SHEYLA /[id number] cc: DO Fadia Mcallister PA-C Copies: WALTER SPAULDING DO ~ Electronically Signed By: AIDEN HILL MD 05/12/21 1237 PATIENT NAME: CASANDRA REYNATRELL OPERATIVE REPORT DATE OF : 86 REPORT #: [id number] PHYSICIAN: AIDEN HILL MD PCP: NO PRIMARY CARE PHYSICIAN REPORT IS CONFIDENTIAL AND NOT TO BE RELEASED WITHOUT AUTHORIZATION
== END 2021-05-10 16:20 | disposition home or self-care (01) ==
LOC: DS 09:12
PROVIDERS: ATTEND Surgery
PROC: BF10YZZ Fluoroscopy of Bile Ducts using Other Contrast (ICD-10-PCS; 2021-05-10)
PROC: 0FT44ZZ Resection of Gallbladder, Percutaneous Endoscopic Approach (ICD-10-PCS; principal; 2021-05-10 10:30)
DX: O99.612 Diseases of the digestive system complicating pregnancy, second trimester (principal); K81.1 Chronic cholecystitis; K21.9 Gastro-esophageal reflux disease without esophagitis; O99.212 Obesity complicating pregnancy, second trimester; E66.9 Obesity, unspecified; O99.282 Endocrine, nutritional and metabolic diseases complicating pregnancy, second trimester; E03.9 Hypothyroidism, unspecified; Z3A.16 16 weeks gestation of pregnancy; Z90.49 Acquired absence of other specified parts of digestive tract; Z88.0 Allergy status to penicillin; Z87.891 Personal history of nicotine dependence
CPT/HCPCS: 00790; 74300; J0131; J0330; J1100; J1170; J1644; J1885; J2001; J2370; J2405; J2704; J3010; J3490; J7121; Q9967

== ENCOUNTER 2021-07-03 18:41 | Emergency (ER) | payer BC ==
[~2021-07-03] VITALS: Ht 162.6 cm; Wt 99.8 kg
[~2021-07-03 18:41] MED LIST changes: +ACETAMINOPHEN500 MG PO; +IBUPROFEN600 MG PO; +OXYCODON-ACETA1 EAC2 PO
== END 2021-07-04 00:05 | disposition home or self-care (01) ==
LOC: ED 18:41
DX: O99.891 Other specified diseases and conditions complicating pregnancy (principal); R10.9 Unspecified abdominal pain; Z3A.24 24 weeks gestation of pregnancy; Z88.5 Allergy status to narcotic agent; Z88.0 Allergy status to penicillin; Z88.2 Allergy status to sulfonamides; Z79.899 Other long term (current) drug therapy
CPT/HCPCS: 76815; 80053; 81001; 85025; 99284-25; J7030

== ENCOUNTER 2021-10-17 00:44 | Inpatient (IN) | payer BC ==
[~2021-10-17] VITALS: Ht 162.6 cm; Wt 110.7 kg
--- NOTE | 2021-10-17 01:58 | NUR ---
PT WAS SWABBED FOR COVID 19
--- NOTE | 2021-10-17 08:25 | PR ---
[facility] [address] [place], [place] [address] Signed Progress Notes IP Datetime Report Generated by CPN: 10/17/2021 08:25 PROGRESS NOTES: [id number] Impression: Reassuring Heart Rate Procedures: Intrauterine Pressure Catheter; Scalp Electrode Plan: Continue Present Management VITAL SIGNS: [id number] Vital Signs: Reviewed VS Notable Details: Initially elevated but resolved HTN. Will monitor EXAM: [id number] Dilatation: 3.0 Effacement: 60 Station: -2 Contractions: q 3 minutes moderate per pt MEMBRANES: [id number] Membranes Status: Ruptured Comments: Limited progress despite low-dose pitocin, [place] tracing significant irritability but pt only feeling occasional contraction. Risks, benefits, alternatives to internal monitors discussed and IUPC and FSE were placed without difficulty. Continue low-dose pitocin per protocol FETUS A: [id number] FHR Baseline: 145 Variability: Moderate 6-25bpm Accelerations: 15X15 Decelerations: None FHR Category: Category I Comments on Fetus A: Reactive NST FETUS B: [id number] Signing Physician: Desmond Myers DO Copies: ~ *Electronically Signed* 10/17/21824 DESMOND MYERS DO PATIENT NAME: TRELL CAMERON ANTHONY PROGRESS NOTE DATE OF : 86 PHYSICIAN: DESMOND MYERS #: [id number] REPORT IS CONFIDENTIAL AND NOT TO BE RELEASED WITHOUT AUTHORIZATION
--- NOTE | 2021-10-17 12:34 | PR ---
[facility] [address] [place], [place] [address] Signed Progress Notes IP Datetime Report Generated by CPN: 10/17/2021 12:34 PROGRESS NOTES: [id number] Impression: Normal Progression of Labor Procedures: Sterile Vag Exam Plan: Continue Present Management VITAL SIGNS: [id number] Vital Signs: Reviewed; Within Normal Limits VS Notable Details: Initially elevated but resolved HTN. Will monitor EXAM: [id number] Dilatation: 4.0 Effacement: 70 Station: -3 Contractions: q 2 to 3 min MEMBRANES: [id number] Membranes Status: Ruptured ROM Note: Forebag ruptured by Dr. Myers clr fluid Comments: Comfortable after epidural and contractions appear adequate. She has made good change in her cervix but it is very edematous anteriorly. Will do position changes and continue. FETUS A: [id number] FHR Baseline: 135 Variability: Moderate 6-25bpm Accelerations: 15X15 Decelerations: None FHR Category: Category I Comments on Fetus A: no evidence of metabolic acidosis FETUS B: [id number] Signing Physician: Ernestina Dotson MD Copies: ~ *Electronically Signed* 10/17/21 1234 ERNESTINA DOTSON MD PATIENT NAME: TRELL CAMERON PROGRESS NOTE DATE OF : 86 PHYSICIAN: ERNESTINA DOTSON MD RPT #: [id number] REPORT IS CONFIDENTIAL AND NOT TO BE RELEASED WITHOUT AUTHORIZATION
--- NOTE | 2021-10-18 07:46 | PR ---
[facility] [address] [facility] [place], [place] [address] Signed PP Progress Notes Datetime Report Generated by CPN: 10/18/2021 07:46 SUBJECTIVE: [id number] Pain: Within Normal Limits Nausea/Vomiting: Denies Vital Signs: [id number] Vital Signs: Reviewed; Within Normal Limits Abdomen/Uterus: Normal Lochia: Normal Extremities: Normal IMPRESSION/PLAN/PROCEDURES: [id number] Impression: Normal Progression Plan: Continue Present Management Procedures: None Progress Notes: Doing well, without complaint. Bleeding has slowed. Signing Physician: Lara Taylor MD Copies: ~ *Electronically Signed* 10/18/21 0746 LARA TAYLOR MD PATIENT NAME: TRELL CAMERON PROGRESS NOTE DATE OF : 86 PHYSICIAN: LARA TAYLOR MD RPT #: [id number] REPORT IS CONFIDENTIAL AND NOT TO BE RELEASED WITHOUT AUTHORIZATION
--- NOTE | 2021-10-19 09:48 | PR ---
[facility] [address] [facility] [place] [address] Signed PP Progress Notes Datetime Report Generated by CPN: 10/19/2021 09:48 SUBJECTIVE: [id number] Pain: Within Normal Limits Nausea/Vomiting: Denies Vital Signs: [id number] Vital Signs: Reviewed; Within Normal Limits Notable Details: PP Hgb/Hct = 9.8/29.9 Abdomen/Uterus: Normal Lochia: Normal Extremities: Normal IMPRESSION/PLAN/PROCEDURES: [id number] Impression: Normal Progression Plan: Discharge Procedures: None Progress Notes: Doing well, ready to go home. Signing Physician: Lara Taylor MD Copies: ~ *Electronically Signed* 10/19/21 0948 LARA TAYLOR MD PATIENT NAME: TRELL CAMERON PROGRESS NOTE DATE OF : 86 PHYSICIAN: LARA TAYLOR MD RPT #: [id number] REPORT IS CONFIDENTIAL AND NOT TO BE RELEASED WITHOUT AUTHORIZATION
--- NOTE | 2021-10-19 09:50 | NUR ---
CHECKING ON PT AND BABY-PT IS ALERT, ORIENTED AND DRESSED IN PREP FOR DC. PT IS VERY HAPPY, LOOKING FORWARD TO GOING HOME. GAVE BLESSING, GAVE STUFFED ANIMAL AND G.POST. WILL FOLLOW NEEDED
== END 2021-10-19 11:30 | disposition home or self-care (01) | DRG 807 ==
LOC: FBCO 00:44 → FBC 01:37
PROVIDERS: ADMIT Obstetrics & Gynecology; ATTEND Obstetrics & Gynecology
PROC: 10E0XZZ Delivery of Products of Conception, External Approach (ICD-10-PCS; principal; 2021-10-17)
PROC: 10H07YZ Insertion of Other Device into Products of Conception, Via Natural or Artificial Opening (ICD-10-PCS; 2021-10-17)
PROC: 00HU33Z Insertion of Infusion Device into Spinal Canal, Percutaneous Approach (ICD-10-PCS; 2021-10-17)
PROC: 3E0R3BZ Introduction of Anesthetic Agent into Spinal Canal, Percutaneous Approach (ICD-10-PCS; 2021-10-17)
PROC: 3E0R3NZ Introduction of Analgesics, Hypnotics, Sedatives into Spinal Canal, Percutaneous Approach (ICD-10-PCS; 2021-10-17)
DX: O42.02 Full-term premature rupture of membranes, onset of labor within 24 hours of rupture (principal); Z37.0 Single live birth; Z20.822 Contact with and (suspected) exposure to COVID-19; Z3A.39 39 weeks gestation of pregnancy; Z88.0 Allergy status to penicillin; Z67.10 Type A blood, Rh positive; O99.03 Anemia complicating the puerperium; D50.0 Iron deficiency anemia secondary to blood loss (chronic)
CPT/HCPCS: 01960; 85027; A9270; J2001; J2405; J2590; J2795; J7121; U0003

== ENCOUNTER 2022-04-04 12:20 | Emergency (ER) | payer OTHER, BC ==
[~2022-04-04] VITALS: Ht 152.4 cm; Wt 91.4 kg
== END 2022-04-04 15:28 | disposition home or self-care (01) ==
LOC: ED 12:20
DX: S09.90XA Unspecified injury of head, initial encounter (principal); E03.9 Hypothyroidism, unspecified; Z88.0 Allergy status to penicillin; Z88.2 Allergy status to sulfonamides; Z88.5 Allergy status to narcotic agent; Z79.899 Other long term (current) drug therapy; W17.89XA Other fall from one level to another, initial encounter
CPT/HCPCS: 99283; A9270

== ENCOUNTER 2023-05-13 11:52 | Emergency (ER) | payer OTHER, BC ==
[~2023-05-13] VITALS: Ht 162.6 cm; Wt 93.0 kg
[~2023-05-13 11:52] MED LIST changes: +DICYCLOMINE HCL20 MG PO; +PROMETHAZINE HC25 M1 PO
[2023-05-13] MEDS ORDERED: ARIPIPRAZOLE2 MG PO (12:08)
[2023-05-13] MEDS ORDERED: PHENTERMINE H37.5 M1 PO (12:09)
[2023-05-13] MEDS ORDERED: NAPROSYN500 MG PO (13:02)
[2023-05-13] MEDS ORDERED: ATIVAN1 MG PO (13:02)
[2023-05-13] MEDS ORDERED: LIDODERM1 EACH TOP (13:02)
[2023-05-13 13:20] VITALS: BP 142/99
== END 2023-05-13 13:20 | disposition home or self-care (01) ==
LOC: ED 11:52
DX: S39.012A Strain of muscle, fascia and tendon of lower back, initial encounter (principal); X50.0XXA Overexertion from strenuous movement or load, initial encounter; Z88.5 Allergy status to narcotic agent; Z88.0 Allergy status to penicillin; Z88.2 Allergy status to sulfonamides; Z79.899 Other long term (current) drug therapy
CPT/HCPCS: 99283

== ENCOUNTER 2024-04-08 19:13 | Emergency (ER) | payer BC ==
[~2024-04-08] VITALS: Ht 162.6 cm; Wt 82.4 kg
[~2024-04-08 19:13] MED LIST changes: +ARIPIPRAZOLE2 MG PO; +ATIVAN1 MG PO; +LIDODERM1 EACH TOP; +NAPROSYN500 MG PO; +PHENTERMINE H37.5 M1 PO
[2024-04-08] MEDS ORDERED: MOUNJARO10 MG/0.5 (19:28)
[2024-04-08 19:34] LABS: BILIRUBIN, URINE NEGATIVE (negative); BLOOD/HGB, URINE TRACE-I (Negative); KETONE, URINE NEGATIVE (Negative); LEUK ESTERASE, URINE TRACE (negative); NITRITE, URINE NEGATIVE (negative); PH, URINE 6.5 (5-7)
[2024-04-08 19:44] LABS: BACTERIA, URINE RARE /hpf (negative); CASTS, URINE NONE SEEN \\lpf; COLLECTION TYPE, URINE CLEAN CATCH; CRYSTALS, URINE NONE SEEN (0-1+); EPITHELIAL CELLS, URINE SQUAMOUS 2+ /lpf (0-1+); RED BLOOD CELLS, URINE 0-1 /hpf (0-5); REFLEX CULTURE, URINE No (No)
[2024-04-08 19:54] LABS: BASOPHILS 0.9 % (0-2); EOSINOPHILS 1.3 % (0-6); HEMATOCRIT 39.4 % (35.0-50.0); LYMPHOCYTES 35.3 % (24-44); MCH 29.3 (27-36); MONOCYTES 5.4 % (0-12); NEUTROPHILS 57.1 % (39-80); PLATELET COUNT 204 K/uL (140-440); RBC 4.43 M/ul (4.3-5.7); RDW 13.7 (10.5-15.0)
[2024-04-08 20:10] LABS: ALBUMIN 3.7 g/dL (3.4-5.0); ALBUMIN/GLOBULIN RATIO 1.28 (1.1-2.4); ANION GAP 11.8 (7-21); BILIRUBIN, TOTAL 0.3 ng/dL (0.2-1.0); CALCIUM 8.5 mg/dL (8.5-10.1); POTASSIUM 3.8 mmol/L (3.5-5.1); PROTEIN, TOTAL 6.6 g/dL (6.4-8.2)
[2024-04-08] MEDS ORDERED: MACROBID 100 M100 MG PO (20:31)
[2024-04-08] MEDS ORDERED: NITROFURANTOIN MONOHYD MACROCR 100 MG HOME.PACK PO ONE (20:45)
[2024-04-08 20:52] VITALS: BP 114/76
== END 2024-04-08 20:52 | disposition home or self-care (01) ==
LOC: ED 19:13
PROVIDERS: Family Medicine
DX: N39.0 Urinary tract infection, site not specified (principal); Z88.0 Allergy status to penicillin; Z88.5 Allergy status to narcotic agent; Z88.2 Allergy status to sulfonamides
CPT/HCPCS: 36415; 80053; 81001; 85025; 99283

== ENCOUNTER 2025-02-14 02:13 | Emergency (ER) | payer BC ==
[~2025-02-14] VITALS: Ht 162.6 cm; Wt 65.0 kg
[~2025-02-14 02:13] MED LIST changes: +MACROBID 100 M100 MG PO; +MOUNJARO10 MG/0.5
[2025-02-14] MEDS ORDERED: ondansetron HCL 4 MG/2 ML VIAL IV ONE (02:30)
[2025-02-14 02:35] LABS: BASOPHILS 0.2 % (0-2); EOSINOPHILS 0.3 % (0-6); HEMATOCRIT 47.1 % (35.0-50.0); HEMOGLOBIN 15.9 g/dL (12.0-18.0); LYMPHOCYTES 12.1 % (24-44); MCH 30.3 (27-36); MCHC 33.8 g/dl (30-36); MCV 89.5 fl (81-99); MONOCYTES 5.1 % (0-12); NEUTROPHILS 82.3 % (39-80); PLATELET COUNT 222 K/uL (140-440); RBC 5.26 M/ul (4.3-5.7); RDW 13.7 (10.5-15.0)
[2025-02-14] MEDS ORDERED: SODIUM CHLORIDE 0.9% 1,000 ML IV SCH (02:45)
[2025-02-14] MEDS ORDERED: HYDROmorphone HCL 1 MG/ML SYR IV PRN (02:45)
[2025-02-14 02:49] LABS: ALBUMIN 4.2 g/dL (3.4-5.0); ALBUMIN/GLOBULIN RATIO 1.35 (1.1-2.4); ANION GAP 12.8 (7-21); BILIRUBIN, TOTAL 0.3 mg/dL (0.2-1.0); BUN/CREATININE RATIO 16.04 (6.0-28.6); CREATININE, SERUM 0.81 mg/dL (0.55-1.02); POTASSIUM 3.8 mmol/L (3.5-5.1); PROTEIN, TOTAL 7.3 g/dL (6.4-8.2)
[2025-02-14] MEDS ORDERED: droPERidol 5 MG/2 ML VIAL IV PRN (03:00)
[2025-02-14 04:12] LABS: BILIRUBIN, URINE NEGATIVE (negative); BLOOD/HGB, URINE NEGATIVE (Negative); KETONE, URINE NEGATIVE (Negative); LEUK ESTERASE, URINE NEGATIVE (negative); NITRITE, URINE NEGATIVE (negative); PH, URINE 5.5 (5-7)
[2025-02-14] MEDS ORDERED: PROTONIX40 MG PO (04:18)
[2025-02-14] MEDS ORDERED: ONDANSETRON ODT8 MG PO (04:18)
[2025-02-14 04:30] VITALS: BP 122/78
[2025-02-14] MEDS ORDERED: PANTOPRAZOLE SODIUM 40 MG TABEC PO ONE (04:30)
[2025-02-14] MEDS ORDERED: ONDANSETRON 4 MG HOME.PACK SL ONE (04:30)
== END 2025-02-14 04:30 | disposition home or self-care (01) ==
LOC: ED 02:13
PROVIDERS: Emergency Medicine
DX: R10.13 Epigastric pain (principal); Z88.0 Allergy status to penicillin; Z88.2 Allergy status to sulfonamides; Z88.1 Allergy status to other antibiotic agents; Z88.5 Allergy status to narcotic agent; Z79.85 Long-term (current) use of injectable non-insulin antidiabetic drugs
CPT/HCPCS: 36415; 74177; 80053; 81003; 83690; 84703; 85025; 96375; 99284-25; A9270; J1171; J1790; J2405; J7030; Q9967